=== PATIENT | male | born 1980 | race Caucasian/White ===

== ENCOUNTER → 2021-09-03 | Outpatient (CLI) | payer BC ==
--- NOTE | 2021-09-03 13:35 | US ---
EXAMINATION TYPE: US soft tissue head/neck DATE OF EXAM: 09/03/2021 COMPARISON: NONE CLINICAL HISTORY: R22.1 Lump, Swelling, mass neck. palpable mid posterior neck noted by patient x 20 years. US findings at posterior neck: hypoechoic, irregular oval mass with is seen within 1cm from skin bri e= 1.3 x 1.5 x 0.8cm. IMPRESSION: Hypoechoic mass likely reflecting an enlarged lymph node. CT of the neck recommended.
== END | disposition home or self-care (01) ==
LOC: RADUSWWP 12:12
PROVIDERS: ATTEND Family Medicine
DX: R22.1 Localized swelling, mass and lump, neck (principal)
CPT/HCPCS: 76536

== ENCOUNTER → 2021-09-16 | Outpatient (CLI) | payer BC ==
--- NOTE | 2021-09-16 09:31 | CT ---
EXAMINATION TYPE: CT soft tissue neck w con DATE OF EXAM: 09/16/2021 9:11 AM COMPARISON: None HISTORY: Localized swelling, mass and lump posterior neck CT DLP: 1091 mGycm Automated exposure control for dose reduction was used. CONTRAST: CT scan of the neck is performed following with IV Contrast, patient injected with 100 mL of Isovue 3 00. Axial images are obtained, coronal and sagittal reformatted images are reviewed. FINDINGS: Over the area of palpable abnormality there is a well-defined circumscribed soft tissue mas s with low central density measuring 1.4 cm and 19 Hounsfield units. Thyroid enhances normally. Groundglass changes involving the lung apices likely on the basis of atele ctasis. There is shotty adenopathy in the soft tissue compartments of the neck. Prominent cisterna magna note d in the posterior fossa. Orbits are symmetric. Moderate to severe changes of chronic sinusitis. Nasopharynx and oropharynx symmetric. Base of the tongue symmetric. Hypertrophic and degenerative changes spine. Submandibular and parotid glands are normal in appearance. IMPRESSION: 1. There is a 1.4 cm soft tissue nodule or mass overlying the area of palpable abnormality which is a nonspecific appearance. Possibly related to sebaceous cyst. Other etiologies not excluded. Correlate clinically. 2. Chronic sinusitis.
== END | disposition home or self-care (01) ==
LOC: RADCTMAIN 08:02
PROVIDERS: ATTEND Nurse Practitioner Family
DX: R22.1 Localized swelling, mass and lump, neck (principal); J32.9 Chronic sinusitis, unspecified
CPT/HCPCS: 70491; Q9967

== ENCOUNTER 2025-01-21 08:39 | Day surgery (SDC) | payer BC, OTHER ==
[~2025-01-21 08:39] MED LIST: HYDROmorphone 0.5 MG/0.5 ML SYRINGE IVP PRN; LACTATED RINGERS 1,000 ML IV SCH; MIDAZOLAM 2 MG/2 ML VIAL IV PRN; Pre Op ABX Message 1 EACH MISC MISCELLANE ONE; SCOPOLAMINE 1 MG/72 HR PATCH TRANSDERM ONE
[2025-01-21 09:09] VITALS: TEMP 97.6
[2025-01-21] MEDS: IV FLUID CONTINUATION 1,000 ML IV ONE ×2 (09:16→11:55)
[2025-01-21] MEDS: ONDANSETRON 4 MG/2 ML VIAL IVP ONE (09:27)
[2025-01-21] MEDS: DEXAMETHASONE SOD PHOSPHATE 4 MG/ML 1 ML VIAL IV ONE (09:27)
[2025-01-21] MEDS: ACETAMINOPHEN TAB 500 MG TAB PO PRN (09:27)
[2025-01-21] MEDS: HEPARIN SODIUM,PORCINE 5,000 UNIT/ML 1 ML VIAL SQ PRN (09:27)
[2025-01-21] MEDS ORDERED: PROPOFOL 10 MG/ML 20 ML VIAL IV ONE (11:51)
[2025-01-21] MEDS ORDERED: MIDAZOLAM 2 MG/2 ML VIAL ONE (11:51)
[2025-01-21] MEDS ORDERED: LIDOCAINE 1% INJ 10MG/ML (20 ML MDV) ONE (11:51)
[2025-01-21] MEDS ORDERED: fentaNYL (PF) 50 MCG/ML 2 ML AMP ONE (11:51)
[2025-01-21] MEDS ORDERED: SUCCINYLCHOLINE CHLORIDE 200 MG/10 ML VIAL IV ONE (11:51)
[2025-01-21] MEDS: BUPIVACAINE (PF) 0.25% 30 ML VIAL SQ ONE (12:15)
--- NOTE | 2025-01-21 12:37 | P.OP ---
Date of Procedure: 01/21/25 Preoperative Diagnosis: Posterior neck mass Postoperative Diagnosis: Posterior neck mass sebaceous cyst 5 cm Procedure(s) Performed: Excision of sebaceous cyst neck Anesthesia: ISAI IZAGUIRRE Surgeon: Andrea Munoz Estimated Blood Loss (ml): 5 Pathology: other (Sebaceous cyst) Condition: stable Disposition: PACU Description of Procedure: Patient was placed on the operative table in the lateral position after receiving general anesthesia. His neck was prepped and draped you sterile fashion. The skin was incised over top of the neck mass. Then using blunt sharp dissection electrocautery the sebaceous cyst was excised. The specimen sent to pathology. Hemostasis achieved electrocautery. The skin was then closed with interrupted 3-0 nylon suture. Patient Toller procedure well. Sent to recovery in stable condition.
[2025-01-21 13:13] VITALS: RESP 18
[2025-01-21 13:31] VITALS: BP 140/62; PULSE 68
== END 2025-01-21 13:41 | disposition home or self-care (01) ==
LOC: OR 08:39
PROVIDERS: ATTEND Surgery
DX: L72.0 Epidermal cyst (principal); F32.A Depression, unspecified; H91.90 Unspecified hearing loss, unspecified ear; Z79.899 Other long term (current) drug therapy; Z88.0 Allergy status to penicillin
CPT/HCPCS: 11426; 88304; J2250; J0330; J1644; J1100; J2405; J2003; J3010; J2704; J0665